=== PATIENT | female | born 1970 | race Caucasian/White ===

== ENCOUNTER 2023-10-19 08:56 | Outpatient (REF) | payer OTHER, SELFPAY ==
[2023-10-19 11:28] LABS: MANUAL DIFF FLAG NO
[2023-10-19 11:38] LABS: Basophils Absolute Auto 0.1 X10*3/uL (0.0-0.2); Basophils Percent Auto 0.9 % (0-2); Eosinophils Absolute Auto 0.1 X10*3/uL (0.0-0.4); Eosinophils Percent Auto 1.8 % (0-4); Hematocrit 38.2 % (37.0-47.0); Hemoglobin 12.7 g/dl (12.0-16.0); Imm Gran Abs Auto 0.03 X10*3/uL (0.00-0.03); Imm Gran Pct Auto 0.4 % (0.0-0.4); Lymphocytes Absolute Auto 1.4 X10*3/uL (1.2-4.9); Lymphocytes Percent Auto 17.8 % (20-40); Mean Corpuscular HGB Conc 33.2 g/dl (31.0-35.0); Mean Corpuscular Hemoglobin 29.2 pg (27.0-33.0); Mean Corpuscular Volume 87.8 fL (80.0-98.0); Mean Platelet Volume 9.1 fL (9.4-12.3); Monocytes Absolute Auto 0.6 X10*3/uL (0.1-1.2); NRBC Pct Auto 0.3 /100WBC (0.0-0.2); Neutrophils Absolute Auto 5.6 x10*3/uL (2.0-8.3); Neutrophils Percent Auto 71.1 % (45-73); Platelet Count 335 X10*3/uL (160-400); Red Blood Count 4.35 X10*6/uL (4.20-5.50); Red Cell Distribution Width 12.6 % (11.0-16.0); White Blood Count 7.9 X10*3/uL (4.8-10.8)
[2023-10-19 12:01] LABS: Alanine Aminotransferase 19 U/L (0-31); Albumin Level 4.5 g/dL (3.5-5.0); Alkaline Phosphatase 56 U/L (39-117); Anion Gap 14 (12-20); Aspartate Amino Transferase 16 U/L (5-31); Bilirubin Total 0.3 mg/dL (0.0-1.0); Blood Urea Nitrogen 14 mg/dL (9-16); Calcium 9.3 mg/dL (8.4-10.2); Carbon Dioxide 25 mmol/L (22-29); Chloride 104 mmol/L (96-108); Cholesterol 182 mg/dL (<200); Estimated Glomerular Filt Rate > 60; Glucose Fasting 97 mg/dL (60-99); HDL Cholesterol 49 mg/dL (>40); LDL Cholesterol Calculated 103 mg/dL (<100); Potassium 4.5 mmol/L (3.3-5.1); Sodium 138 mmol/L (135-145); Total Protein 7.8 g/dL (6.5-8.0); Triglycerides 153 mg/dL (<150)
[2023-10-19 12:12] LABS: Estimated Average Glucose 105 mg/dL; Hemoglobin A1c % 5.3 % (<6.0)
[2023-10-19 12:17] LABS: TSH reflex Free T4 1.33 uIU/mL (0.32-4.0)
[2023-10-19 12:28] LABS: Folate 7.8 ng/mL (> or = 4.0); Vitamin B12 299 pg/mL (200-900)
== END 2023-10-19 08:57 | disposition home or self-care (01) ==
LOC: HO.WFDLDS 08:56
PROVIDERS: Visit Provider Physician Assistant
DX: R73.01 Impaired fasting glucose (principal); I10 Essential (primary) hypertension
CPT/HCPCS: 36415; 80053; 80061; 82607; 82746; 83036; 84443; 85025

== ENCOUNTER 2023-10-27 11:09 | Outpatient (AMB) | payer OTHER, SELFPAY ==
--- NOTE | 2023-10-27 10:37 | MHC.PC.OV ---
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 Intake Note: New patient visit Allergies No Known Allergies Allergy (Verified 10/27/23 10:40) Medication List - Last Reconciled 10/27/23 by Elissa Melgar PA-C furosemide 20 mg PO DAILY lisinopril 40 mg PO DAILY mecobalamin (vitamin B12) 1,000 mcg sublingual DAILY Tobacco use date assessed: 10/27/23 Dental Screening Dental Screen Date: 10/27/23 Did you have a dental visit in the last 12 months?: No Did you have a dental problem in the last 6 months where you did not have access to dental care?: No Was dental information given to patient?: Patient has dentist HPI 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 She is transferring from [facility]. She tells me today that her main concern is her weight frustrations. -She has tried phentermine, the cave man diet, calorie cutting and exercise. She has tried weight watchers, first form, [employer] diet and beach body. She lost 60 lbs one time with adipex and exercise, while following with the weight loss clinic at [facility] [place]. She gained it back each time with time. CV: Her blood pressure today in the office is 108/84. She is currently on lisinopril 40 mg and furosemide 20 mg daily. Doing well. No chest pain or shortness on breath. 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, following with [facility]GG Mammo: UTD, at [facility] Going to get shingles vaccine [facility] Medical History (Updated 10/27/23 @ 13:57 by Elissa Melgar PA-C) Obesity with body mass index of 30.0-39.9 Anxiety and depression Family History (Updated 10/27/23 @ 11:40 by Wendy Mcdowell CMA) Mother HTN (hypertension) Father HTN (hypertension) Sister HTN (hypertension) Social History (Updated 10/27/23 @ 10:40 by Wendy Mcdowell CMA) Housing: House Patient Tobacco Use Status: Former Tobacco user Years Smoked: 1 e-Cigarette/Vaping Use: Never Used Second Hand Smoke Exposure: No Use of substances other than those prescribed or required for medical reasons: No service: No Current occupational status: employed 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 1. Little interest or pleasure in doing things: not at all 2. Feeling down, depressed, or hopeless: not at all 3. Trouble falling or staying asleep, or sleeping too much: not at all 4. Feeling tired or having little energy: several days 5. Poor appetite or overeating: several days 6. Feeling bad about yourself - or that you are a failure or have let yourself or your family down: not at all 7. Trouble concentrating on things, such as reading the newspaper or watching television: not at all 8. Moving or speaking so slowly that other people could have noticed. Or the opposite - being so fidgety or restless that you have been moving around a lot more than usual: not at all 9. Thoughts that you would be better off or of hurting yourself in some way: not at all Total score: 2 Depression Screening Interpretation: Negative Depression Screening Done: Yes 91389 - PHQ-9 Billing: Yes Source: Developed by Drs. Ron Singh, Susan Scott, Melo Parker and colleagues, with an educational batool from [employer]. Thrive Questionnaire Date Thrive assessed: 10/27/23 I am a: Patient What is your living situation today?: I have a steady place to live Within the past 12 months, did the food you bought not last and you didn't have the money to get more?: Never true Within the past 12 months, did you worry whether your food would run out before you got money to buy more?: Never true Do you have trouble paying for medicines?: No Do you have trouble getting transportation to medical appointments?: No Do you have trouble paying your heating and electricity bill?: No Do you have trouble taking care of your child, family member or friend?: No Do you have trouble with day-to-day activities such as bathing, preparing meals, shopping, managing finances, etc.?: No Are you currently unemployed and looking for a job?: No Are you interested in more education?: No Please select the resources that you would like help with: None Currently or been in a relationship where the following occur: No concerns reported THRIVE Score: 0 AUDIT C Alcohol Use Questionnaire (AUDIT-C) 1. How often do you have a drink containing alcohol?: 2-4 times a month 2. How many drinks containing alcohol do you have on a typical day when you are drinking?: 3 or 4 3. How often do you have six or more drinks on one occasion?: Never Total Score: 3 SCAR-7 AMB Questionnaire SCAR-7 Date SCAR - 7 assessed: 10/27/23 Feeling nervous, anxious, or on edge: 0 = Not at all Not being able to stop or control worryin = Not at all Worrying too much about different things: 0 = Not at all Trouble relaxin = Not at all Being so restless that it is hard to sit still: 0 = Not at all Becoming easily annoyed or irritable: 0 = Not at all Feeling afraid as if something awful might happen: 0 = Not at all Total SCAR-7 score (0-4 normal; 5-9 mild; 10-14 moderate; 15-21 severe): 0 Source: Developed by Drs. Ron Singh, Susan Scott, Melo Parker and colleagues, with an educational batool from [employer]. SCAR-7 Assessment Billing SCAR-7 Assessment Tool: SCAR-7 Assessment 72752 Physical exam (Primary Care) Vital Signs: Last Vital Signs Temp 98.1 F 10/27/23 11:32 Pulse 74 10/27/23 11:32 Resp 12 10/27/23 11:32 BP 108/84 10/27/23 11:32 Pulse Ox 99 10/27/23 11:32 Oxygen Delivery Method Room Air 10/27/23 11:32 BMI result Body Mass Index 31.0 BMI Assessment/Plan discussion: High (We will start Wegovy) BMI High, discussed plan: lifestyle, weight reduction, dietary, physical activity and alcohol moderation Tobacco/Smoking Status: Tobacco use Status Tobacco use date assessed 10/27/23 10/27/23 11:26 Patient Tobacco Use Status Former Tobacco user 10/27/23 11:40 e-Cigarette/Vaping Use Never Used 10/27/23 11:26 PHQ-9: PHQ-9 Score PHQ-9: Total score 2 10/27/23 12:08 Depression Screening Interpretation: Negative Thrive Assessment: Date of Thrive Assessment Date Thrive assessed 10/27/23 10/27/23 11:40 Currently or been in a relationship where the following occur: No concerns reported Const Orientation/consciousness: patient oriented x3 HENMT Ears: hearing grossly normal bilaterally Neck Thyroid: Thyroid normal Lymphatic: no lymphadenopathy noted Resp Auscultation: clear to auscultation bilaterally Cardio Rate: regular rate Rhythm: regular rhythm Heart sounds: S1 normal heart sound present and S2 normal heart sound present GI Inspection: Yes normal to inspection Palpation (GI): Soft to palpation and Other GI palpation findings present (nontender, no cva tenderness) Auscultation: normoactive bowel sounds Rectal Exam - Female: deferred Skin General skin exam: no rashes or lesions noted Neuro General: patient oriented x3, gait normal and no focal motor deficits Results Reviewed Results Reviewed: Laboratory Tests 10/19/23 08:58 WBC 7.9 RBC 4.35 Hgb 12.7 Hct 38.2 Plt Count 335 Sodium 138 Potassium 4.5 Creatinine 0.86 Estimated GFR > 60 Hemoglobin A1c % 5.3 AST 16 ALT 19 Triglycerides 153 H Cholesterol 182 LDL Cholesterol, Calc 103 H HDL Cholesterol 49 Assessment and Plan Assessment & Plan (1) HTN (hypertension): Code(s): I10 - Essential (primary) hypertension Qualifiers: Hypertension type: primary hypertension Qualified Code(s): I10 - Essential (primary) hypertension Plan: BP WNL. Continue current regimen (2) IFG (impaired fasting glucose): Code(s): R73.01 - Impaired fasting glucose Plan: Reviewed last labs. A1c 5.5. (3) Obesity with body mass index of 30.0-39.9: Code(s): E66.9 - Obesity, unspecified Plan: Has trialed many different regimens and is currently eating very healthy. She has recently followed with a gut sorter but is still unable to lose weight. We will try Wegovy. We discussed risks, benefits and adverse effects of this medication. Follow up in 2 months. Sooner if needed. (4) Rosacea: Code(s): L71.9 - Rosacea, unspecified Plan: Metronidazole cream refilled. Medications: New furosemide 20 mg PO DAILY 90 tabs 3RF metronidazole 1% 1 appl topical BEDTIME 60 grams 6RF lisinopril 40 mg PO DAILY 90 tabs 3RF semaglutide (weight loss) (Unruly) administer weeks 1 through 4 of therapy 0.25 mg (0.5 mL) subcut QWEEK 2 mL 0RF Coding Level of Care Code Est Pt Level 4 (78601) Diagnoses Primary hypertension I10 Hypertension type: primary hypertension IFG (impaired fasting glucose) R73.01 Obesity with body mass index of 30.0-39.9 E66.9 Rosacea L71.9 Additional Codes SCAR-7 Assessment Billing - SCAR-7 Assessment Tool: SCAR-7 Assessment 19286 ([id number])
[2023-10-27 11:32] VITALS: BP 108/84; PULSE 74; RESP 12; TEMP 36.7; O2SAT 99; BMI 31.0
== END 2023-10-27 12:32 | disposition home or self-care (01) ==
PROVIDERS: PCP Physician Assistant; Visit Provider Physician Assistant
DX: I10 Essential (primary) hypertension (principal); R73.01 Impaired fasting glucose; E66.9 Obesity, unspecified; Z68.31 Body mass index [BMI] 31.0-31.9, adult; L71.9 Rosacea, unspecified
CPT/HCPCS: 99214

== ENCOUNTER 2025-01-18 14:05 | Outpatient (AMB) | payer OTHER, SELFPAY ==
--- NOTE | 2025-01-18 14:11 | A.OFFPC_ITS ---
Vital Signs 01/18/25 14:20 Weight 174 lb BP 118/80 Blood Pressure Location Rt brachial Position Sitting Respiration 16 Pulse 75 Pulse Source Pulse Oximeter Temp 97.9 F Temp Source Oral Pulse Oximetry (%) 99 Oxygen Delivery Method Room Air Intake Visit Reasons: medication refill Intake Note: medication refill Director Of Sleep Required: No Allergies No Known Allergies Allergy (Verified 01/18/25 14:14) Medication List - Last Reconciled 01/18/25 by Elissa Melgar PA-C furosemide 20 mg PO DAILY lisinopril 40 mg PO DAILY tirzepatide (weight loss) (Zepbound) 5 mg (0.5 mL) subcut QWEEK Tobacco use date assessed: 01/18/25 Dental Screening Dental Screen Date: 01/18/25 Did you have a dental visit in the last 12 months?: No Did you have a dental problem in the last 6 months where you did not have access to dental care?: No Was dental information given to patient?: Patient has dentist HPI medication refill HPI Details Patient is a 54-year-old female with a significant past medical history of hypertension, B12 deficiency, obesity and rosacea presenting today for a follow up. General: Doing well with the zepbound CV: Her blood pressure today in the office is 118/80. She is currently on lisinopril 40 mg and furosemide 20 mg daily. Doing well. The furosemide is helpful for the lower leg swelling that she intermittently gets. She does note that if she does not take the blood pressure medications she does get palpitations. They are not as bad as they used to be but she still does get them regularly. She has had a negative stress test in the past. No chest pain or shortness on breath. Colonoscopy: UTD, due in 2032 Header Operator: UTD, following with ALESSIO Simso: UTD, at [facility] Medical History (Updated 01/18/25 @ 14:36 by Elissa Melgar PA-C) Obesity with body mass index of 30.0-39.9 Anxiety and depression Surgical History History of ankle surgery Family History Mother HTN (hypertension) Father HTN (hypertension) Sister HTN (hypertension) Social History (Updated 01/18/25 @ 14:19 by Benjamin Box MA) Housing: House Alcohol intake: current Patient Tobacco Use Status: Former Tobacco user Cigarette Packs Per Day: 0 (Not an everyday smoker) Years Smoked: 1 e-Cigarette/Vaping Use: Never Used Second Hand Smoke Exposure: No service: No Current occupational status: employed 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 1. Little interest or pleasure in doing things: not at all 2. Feeling down, depressed, or hopeless: not at all 3. Trouble falling or staying asleep, or sleeping too much: not at all 4. Feeling tired or having little energy: not at all 5. Poor appetite or overeating: not at all 6. Feeling bad about yourself - or that you are a failure or have let yourself or your family down: not at all 7. Trouble concentrating on things, such as reading the newspaper or watching television: not at all 8. Moving or speaking so slowly that other people could have noticed. Or the opposite - being so fidgety or restless that you have been moving around a lot more than usual: not at all 9. Thoughts that you would be better off or of hurting yourself in some way: not at all Total score: 0 Depression Screening Interpretation: Negative Depression Screening Done: Yes 95442 - PHQ-9 Billing: Yes Source: Developed by Drs. Ron Singh, Susan Scott, Melo Parker and colleagues, with an educational batool from [employer]. Thrive Questionnaire Date Thrive assessed: 01/18/25 I am a: Patient What is your living situation today?: I have a steady place to live Within the past 12 months, did the food you bought not last and you didn't have the money to get more?: Never true Within the past 12 months, did you worry whether your food would run out before you got money to buy more?: Never true Do you have trouble paying for medicines?: No Do you have trouble getting transportation to medical appointments?: No Do you have trouble paying your heating and electricity bill?: No Do you have trouble taking care of your child, family member or friend?: No Do you have trouble with day-to-day activities such as bathing, preparing meals, shopping, managing finances, etc.?: No Are you currently unemployed and looking for a job?: No Are you interested in more education?: No Please select the resources that you would like help with: None Currently or been in a relationship where the following occur: No concerns reported THRIVE Score: 0 AUDIT C Alcohol Use Questionnaire (AUDIT-C) 1. How often do you have a drink containing alcohol?: 2-4 times a month 2. How many drinks containing alcohol do you have on a typical day when you are drinking?: 1 or 2 3. How often do you have six or more drinks on one occasion?: Never Total Score: 2 SCAR-7 AMB Questionnaire SCAR-7 Date SCAR - 7 assessed: 01/18/25 Feeling nervous, anxious, or on edge: 0 = Not at all Not being able to stop or control worryin = Not at all Worrying too much about different things: 0 = Not at all Trouble relaxin = Not at all Being so restless that it is hard to sit still: 0 = Not at all Becoming easily annoyed or irritable: 0 = Not at all Feeling afraid as if something awful might happen: 0 = Not at all Total SCAR-7 score (0-4 normal; 5-9 mild; 10-14 moderate; 15-21 severe): 0 Source: Developed by Drs. Ron Singh, Susan Scott, Melo Parker and colleagues, with an educational batool from [employer]. SCAR-7 Assessment Billing SCAR-7 Assessment Tool: SCAR-7 Assessment 53713 Physical exam (Primary Care) Tobacco/Smoking Status: Tobacco use Status Tobacco use date assessed 01/18/25 01/18/25 14:17 Patient Tobacco Use Status Former Tobacco user 01/18/25 14:19 e-Cigarette/Vaping Use Never Used 01/18/25 14:19 PHQ-9: PHQ-9 Score PHQ-9: Total score 0 01/18/25 14:17 Depression Screening Interpretation: Negative Thrive Assessment: Date of Thrive Assessment Date Thrive assessed 01/18/25 01/18/25 14:17 Currently or been in a relationship where the following occur: No concerns reported Const Orientation/consciousness: patient oriented x3 HENMT Ears: hearing grossly normal bilaterally Neck Thyroid: Thyroid normal Lymphatic: no lymphadenopathy noted Resp Auscultation: clear to auscultation bilaterally Cardio Rate: regular rate Rhythm: regular rhythm Heart sounds: S1 normal heart sound present and S2 normal heart sound present GI Inspection: Yes normal to inspection Palpation (GI): Soft to palpation and Other GI palpation findings present (nontender, no cva tenderness) Auscultation: normoactive bowel sounds Rectal Exam - Female: deferred Skin General skin exam: no rashes or lesions noted Neuro General: patient oriented x3, gait normal and no focal motor deficits Results Reviewed Results Reviewed: Laboratory Tests 10/19/23 08:58 WBC 7.9 RBC 4.35 Hgb 12.7 Hct 38.2 Plt Count 335 Sodium 138 Potassium 4.5 Chloride 104 Carbon Dioxide 25 Anion Gap 14 BUN 14 Creatinine 0.86 Estimated GFR > 60 Estimat Average Glucose 105 Hemoglobin A1c % 5.3 AST 16 ALT 19 Triglycerides 153 H Cholesterol 182 LDL Cholesterol, Calc 103 H HDL Cholesterol 49 Vitamin B12 299 Folate 7.8 TSH 1.33 Coding Level of Care Code Est Pt Level 4 (62098) Complex EM visit Add On G2211 Diagnoses Primary hypertension I10 Hypertension type: primary hypertension IFG (impaired fasting glucose) R73.01 B12 deficiency E53.8 Palpitations R00.2 Lower leg edema R60.0 Additional Codes SCAR-7 Assessment Billing - SCAR-7 Assessment Tool: SCAR-7 Assessment 37513 ([id number]) PHQ-9 - 35651 - PHQ-9 Billing: Yes ([id number]) Assessment & Plan Assessment & Plan (1) HTN (hypertension): Code(s): I10 - Essential (primary) hypertension Category: Medical Qualifiers: Hypertension type: primary hypertension Qualified Code(s): I10 - Essential (primary) hypertension Plan: Continue current regimen (2) IFG (impaired fasting glucose): Code(s): R73.01 - Impaired fasting glucose Category: Medical Plan: A1c ordered (3) B12 deficiency: Code(s): E53.8 - Deficiency of other specified B group vitamins Category: Medical Plan: No longer on B12 supplement. We will check labs (4) Palpitations: Code(s): R00.2 - Palpitations Category: Medical Plan: Holter and echo ordered (5) Lower leg edema: Code(s): R60.0 - Localized edema Category: Medical Plan: As above. Continue with furosemide as needed Orders: Orders Complete Blood Count Auto Diff Today I10 - Essential (primary) hypertension, R73.01 - Impaired fasting glucose Comprehensive [place]. Panel Fast Today I10 - Essential (primary) hypertension, R73.01 - Impaired fasting glucose Lipid Panel Today I10 - Essential (primary) hypertension, R73.01 - Impaired fasting glucose TSH reflex Free T4 Today I10 - Essential (primary) hypertension, R73.01 - Impaired fasting glucose CA echo transthoracic complete Today I10 - Essential (primary) hypertension, R00.2 - Palpitations, R60.0 - Localized edema ECG holter monitor 24 hour Today I10 - Essential (primary) hypertension, R00.2 - Palpitations Microalbumin, Random (w Creat) Today I10 - Essential (primary) hypertension, R73.01 - Impaired fasting glucose Hemoglobin A1c Today R73.01 - Impaired fasting glucose UA CC w/rflx Micro + Cult Today R30.0 - Dysuria Vitamin B12 and Folate Today E53.8 - Deficiency of other specified B group vitamins Medications: Refilled furosemide 20 mg PO DAILY 90 tabs 3RF lisinopril 40 mg PO DAILY 90 tabs 3RF
[2025-01-18 14:20] VITALS: BP 118/80; PULSE 75; RESP 16; TEMP 36.6; O2SAT 99
== END 2025-01-18 14:41 | disposition home or self-care (01) ==
LOC: HO.HMCFM 14:06
PROVIDERS: PCP Physician Assistant; Visit Provider Physician Assistant
DX: I10 Essential (primary) hypertension (principal); R73.01 Impaired fasting glucose; E53.8 Deficiency of other specified B group vitamins; R00.2 Palpitations; R60.0 Localized edema

== ENCOUNTER → 2025-01-18 14:05 | Outpatient (BNVA) | payer OTHER, SELFPAY | PROVIDERS: PCP Physician Assistant; Visit Provider Physician Assistant | DX: I10 Essential (primary) hypertension (principal); E53.8 Deficiency of other specified B group vitamins; E66.9 Obesity, unspecified; R73.01 Impaired fasting glucose; R00.2 Palpitations; R60.0 Localized edema | CPT/HCPCS: 96127 ==

== ENCOUNTER 2025-01-24 07:43 | Outpatient (REF) | payer OTHER, SELFPAY ==
[2025-01-24 11:24] LABS: MANUAL DIFF FLAG NO
[2025-01-24 11:50] LABS: Hematocrit 37.0 % (37.0-47.0); Hemoglobin 11.9 g/dl (12.0-16.0); Imm Gran Abs Auto 0.03 X10*3/uL (0.00-0.03); Imm Gran Pct Auto 0.3 % (0.0-0.4); Lymphocytes Absolute Auto 1.2 X10*3/uL (1.2-4.9); Mean Corpuscular HGB Conc 32.2 g/dl (31.0-35.0); Mean Corpuscular Hemoglobin 29.2 pg (27.0-33.0); Mean Corpuscular Volume 90.7 fL (80.0-98.0); NRBC Abs Auto 0.000 X10*3/uL (0.0-0.012); NRBC Pct Auto 0.0 /100WBC (0.0-0.2); Platelet Count 317 X10*3/uL (160-400); Red Blood Count 4.08 X10*6/uL (4.20-5.50); White Blood Count 9.2 X10*3/uL (4.8-10.8)
[2025-01-24 12:04] LABS: Alanine Aminotransferase 23 U/L (0-31); Albumin Level 4.3 g/dL (3.5-5.0); Alkaline Phosphatase 49 U/L (39-117); Anion Gap 7 (12-20); Aspartate Amino Transferase 24 U/L (5-31); Blood Urea Nitrogen 19 mg/dL (9-16); Calcium 8.6 mg/dL (8.4-10.2); Carbon Dioxide 28 mmol/L (22-29); Chloride 108 mmol/L (96-108); Cholesterol 173 mg/dL (<200); Estimated Glomerular Filt Rate > 60; HDL Cholesterol 61 mg/dL (>40); Potassium 4.6 mmol/L (3.3-5.1); Sodium 138 mmol/L (135-145); Total Protein 7.0 g/dL (6.5-8.0); Triglycerides 90 mg/dL (<150)
[2025-01-24 12:13] LABS: Folate 7.8 ng/mL (> or = 4.0); Vitamin B12 270 pg/mL (200-900)
[2025-01-24 14:05] LABS: Appearance Urine Clear; Glucose Urine UA Negative (Negative); PH 6.5 (5.0-9.0); Specific Gravity - Urine 1.025 (1.005-1.025); UMIC TRIGGER UACC YES
[2025-01-24 14:52] LABS: Microalbum/Creatinine Ratio Ur 4.8 ug/mg cr (<30)
== END 2025-01-24 07:44 | disposition home or self-care (01) ==
LOC: HO.WFDLDS 07:43
PROVIDERS: Visit Provider Physician Assistant
DX: I10 Essential (primary) hypertension (principal); E53.8 Deficiency of other specified B group vitamins; R73.01 Impaired fasting glucose
CPT/HCPCS: 36415; 80053; 80061; 81001; 81003; 82043; 82570; 82607; 82746; 83036; 84443; 85025

== ENCOUNTER → 2025-02-14 13:47 | Outpatient (REF) | payer OTHER, SELFPAY ==
--- NOTE | 2025-02-14 13:52 | CA_ITS ---
Transthoracic Echocardiogram Patient (Last, First, Middle): Keli Thayer, Gender: Female Date of : 1970 Age: 54 Procedure Date: 02/14/2025 Procedure Type: Transthoracic Echocardiogram Location: OP Height: 170.18 cm Weight: 78.93 kg BSA: 1.91 m2 Heart Rate: 81 bpm BP: 120 / 76 mmHg Inventory Worker: BALJINDER Referring MD: Elissa Melgar PA-C Ditch Tender: Lopez Aleman MD Symptoms: R00.2 - Palpitations Study Quality: Adequate ECG Rhythm: Sinus Conclusions: - Essentially normal study Findings Left Ventricle Normal left ventricular size, thickness, and systolic function. The visually estimated ejection fraction is between 60-65%. Diastolic function is normal for age. Right Ventricle Normal right ventricular cavity size and systolic function. Atria Both atria are normal in size. There is no evidence of interatrial shunt. Aortic Valve Normal aortic valve structure and function. There is no aortic valve stenosis. There is no aortic valve regurgitation. Mitral Valve Normal mitral valve structure and function. There is trace mitral valve regurgitation. There is no mitral valve stenosis. Pulmonic Valve The pulmonic valve is likely normal. There is trace pulmonic valve regurgitation. Tricuspid Valve Normal tricuspid valve structure. There is trace tricuspid valve regurgitation. The right ventricular systolic pressure is normal. The right ventricular systolic pressure is 30 mmHg. Normal right atrial pressure. There is no evidence of pulmonary hypertension. Great Vessels All visible segments of the aorta are normal in size. The pulmonary artery was not well visualized. There is no dilatation of the ascending aorta measuring 3.20 cm. Venous The inferior vena cava is normal in size and collapses greater than 50% with inspiration. Pericardium/Pleural There is no evidence of pericardial effusion. Prior Study Comparison No prior study available for comparison. Measurements 2D Linear Measurements IVSd: 1.05 0.6-0.9/0.6-1.0 cm LVIDd: 4.15 3.9-5.3/4.2-5.9 cm LVIDd Index: 2.17 2.4-3.2/2.2-3.1 cm/m2 LVIDs: 2.91 2.0-3.6 cm LVPWd: 0.70 0.7-1.1 cm LA Diam: 3.80 2.7-3.8/3.0-4.0 cm LAIDs Index: 1.99 1.5-2.3 cm/m2 LV Mass: 139.37 67-162/88-224 g LV Mass Index: 72.97 43-95/49-115 g/m2 LVOT Diam: 2.10 3.0+(-)1.3 cm 2D Systolic Function EF 4C: 56.60 >55% EF 2C: 71.40 >55% EF BiP: 64.30 >55% Mitral Valve MV Pk E: 0.86 MV PK A: 0.74 MV Decel Time: 214.00 E/A: 1.20 E'Lateral: 10.60 E'Medial: 7.94 E/E' Med: 10.90 E/E' Lat: 8.10 PHT: 63.00 MVA PHT: 3.49 Decel [place]: 4.04 Aortic Valve AoV Pk Leland: 1.30 AoV Pk Grad: 7.00 AINSLEY: 3.57 LVOT LVOT Pk Leland: 1.34 LVOT Mn Leland: 0.93 LVOT VTI: 0.27 LVOT Pk Grad: 7.00 LVOT Mn Grad: 4.00 LVOT Diam: 2.10 LVOT Area: 3.46 Diastolic Function MV Pk E: 0.86 MV Pk A: 0.74 E/A: 1.20 E'Medial: 7.94 E/E' Med: 10.90 E' Laterial: 10.60 E/E' Lat: 8.10 Right Ventricle TAPSE (mm): 25.40 TVS' Leland: 13.10 Tricuspid Valve TR Pk Leland: 2.32 TR Pk Grad: 22.00 RA Press: 8.00 RVSP: 30.00 Great Vessels Aorta Sinus of Valsalva: 3.30 2.0-3.5 cm Ao Asc: 3.20 2.1-3.4 cm Ao Arch: 2.80 Pulmonary Veins Pulm Vein S/D 1.80 Pulmonary Valve PV Pk Leland: 0.76 Peak PV Grad: 2.00 Updated in Other Vendor System with Status of Final Lopez Aleman MD electronically signed on 02/14/2025 6:04:30 PM with status of Final
--- NOTE | 2025-02-14 13:52 | HM_ITS ---
* Total monitoring time one day. * Underlying rhythm is sinus with an average rate of 89/Min. * Rare supraventricular ectopy. * Rare ventricular ectopy. * No significant pauses or high-grade AV blocks. * No patient markers or diary events. MTDD
== END ==
LOC: HO.CARD 13:47
PROVIDERS: PCP Physician Assistant; Visit Provider Physician Assistant
DX: R00.2 Palpitations (principal); I10 Essential (primary) hypertension; R60.0 Localized edema
CPT/HCPCS: 93225; 93306

== ENCOUNTER → 2025-02-14 13:52 | Outpatient (BNV) | payer OTHER, SELFPAY | PROVIDERS: PCP Physician Assistant; Visit Provider Internal Medicine Cardiovascular Disease | DX: R00.2 Palpitations (principal) | CPT/HCPCS: 93306 ==